=== PATIENT | male | born 1960 | race Caucasian/White ===

== ENCOUNTER 2022-11-15 02:16 | Emergency (ER) | payer OTHER, SELFPAY ==
[2022-11-15 02:17] VITALS: BP 160/67; PULSE 80; RESP 16; TEMP 36.6; BMI 22.0
--- NOTE | 2022-11-15 03:01 | EX.ED.VIS.EY ---
HPI History of Present Illness Chief Complaint: Eye Problem Informant: patient Onset/Context/Timing Location: Left Eye Onset: Yesterday Context: Gradual Onset Current Severity: Moderate Maximum Severity: Moderate Narrative Narrative: Patient presents with left thigh swelling and redness with some yellow drainage that started around 7 PM last evening. He denies any known injury. He does not remember being around anything that may have gotten into his eye and does not have foreign body sensation. He has not had URI symptoms recently. He does wear glasses but denies contacts or any prior eye surgeries. PFSH PFSH no medical history Home Medications methylprednisolone 4 mg tablets in a dose pack (Medrol (Donny)) See Rx Instructions PO PER PKG DIR #21 tabs 05/20/21 [Rx Last Taken Unknown] triamcinolone acetonide 0.1 % topical cream 1 applic topical BID #80 grams 05/20/21 [Rx Last Taken Unknown] crisaborole 2 % topical ointment (Eucrisa) 1 applic topical BID #100 grams 09/01/21 [Rx Last Taken Unknown] Allergy/AdvReac Type Severity Reaction Status Date / Time No Known Allergies Allergy Unverified 05/20/21 15:55 Family History Grandfather Cancer Surgical History History of appendectomy Social History Smoking Status: Never smoker alcohol intake: never substance use type: does not use what type of physical activity do you participate in: walking frequency: daily ROS ROS ED Constitutional Constitutional ED: Denies chills or fever(s) Eyes Eyes: Reports discharge from eye(s) ENT ENT ED: Reports discharge from eye(s); Denies rhinorrhea or sore throat Cardiovascular Cardiovascular: Denies chest pain Respiratory/Chest Respiratory/Chest: Denies cough or dyspnea Gastrointestinal Gastrointestinal: Denies abdominal pain, nausea or vomiting Musculoskeletal Musculoskeletal: Denies back pain Integumentary Denies Abrasions or rash Neurologic Neurologic: Denies headache(s) Allergic/Immunologic Allergic/Immunologic ED: Denies lip swelling or urticaria EXAM Physical Exam Narrative Exam Narrative: Patient sitting in a well lit room in no acute distress. Const Vital Signs: 11/15/22 02:17 Temperature 97.8 F Temperature Source Oral Pulse Rate 80 Respiratory Rate 16 Blood Pressure 160/67 H Blood Pressure Mean 98 Positive well nourished and well developed General Appearance ED: well developed HEENT atraumatic Eyes Eyes Narrative: Mild left eyelid edema and erythema. Yellow discharge noted from the left eye. Conjunctival injection and irritation noted. Extraocular movements fully intact with no pain. Pupils are equal and reactive. Resp normal respiratory effort and clear to auscultation bilaterally Cardio regular rate and regular rhythm GI non-tender Extremity normal to inspection Neuro oriented x3 and moves all extremities MDM MDM MDM Narrative Medical decision making narrative: Patient has no clinical findings consistent with orbital or periorbital cellulitis. Fluorescein is applied to the left eye with no evidence of uptake/no evidence of abrasion or ulceration. Patient was treated with gentamicin eyedrops, first dose given here. He is referred to ophthalmology for follow-up as needed. Return instructions given. Differential Diagnosis Differential Diagnosis: Foreign body to eye Why less likely: No foreign body noted on exam. Differential Diagnosis: Corneal abrasion Why less likely: No fluorescein uptake noted. Discharge Plan Triage Chief Complaint: Eye Problem ED Provider: Patti Ch Dx/Rx/DC Orders Clinical Impression: Conjunctivitis Instructions: ED Conjunctivitis, Nonspecific Prescriptions: No Action methylprednisolone [Medrol (Donny)] 4 mg tablets,dose pack See Rx Instructions PO PER PKG DIR Qty: 21 0RF Rx Instructions: PO PER PKG DIR triamcinolone acetonide 0.1 % cream 1 applic topical BID Qty: 80 2RF Eucrisa 2 % ointment 1 applic topical BID Qty: 100 1RF Primary Care Provider: Lalo Leyva Referrals: Lalo Leyva DO [Primary Care Provider] - Liz Stuart MD [Med Staff - Active Staff] - As Needed Activity Restrictions/Additional Instructions: Gentamicin eyedrops: 2 drops to left eye 4 times daily until symptoms resolved for 24 hours Disposition Disposition: Home, Self Care Discharge Date/Time: 11/15/22 03:23
[2022-11-15] MEDS: Gentamicin Sulfate 1 OPTH.BTL 2 DRP LEFT EYE (03:18)
[2022-11-15] MEDS: Fluorescein 1 MG STRIP 1 STRIP LEFT EYE (03:21)
== END 2022-11-15 03:23 | disposition home or self-care (01) ==
PROVIDERS: Emergency Provider Emergency Medicine; PCP Family Medicine; Visit Provider Emergency Medicine
DX: H10.9 Unspecified conjunctivitis (principal)
CPT/HCPCS: 99282